=== PATIENT | female | born 1975 | race Caucasian/White ===

== ENCOUNTER → 2020-12-07 | Outpatient (CLI) | payer OTHER ==
[~2020-12-07] MED LIST: LODINE CAP 300300 MG PO; PENVEE K 500 M500 MG PO; ZOFRAN ODT 4 MG4 MG PO
== END ==
LOC: MAMO 11:02
DX: Z12.31 Encounter for screening mammogram for malignant neoplasm of breast (principal)
CPT/HCPCS: 77063; 77067

== ENCOUNTER 2021-01-07 00:37 | Emergency (ER) | payer OTHER ==
[2021-01-07] MEDS ORDERED: LODINE CAP 300300 MG PO (00:56)
[2021-01-07] MEDS ORDERED: ZOFRAN ODT 4 MG4 MG PO (00:56)
[2021-01-07] MEDS ORDERED: PENVEE K 500 M500 MG PO (00:56)
== END 2021-01-07 01:10 | disposition home or self-care (01) ==
LOC: ER1 00:37
DX: K08.89 Other specified disorders of teeth and supporting structures (principal); E78.5 Hyperlipidemia, unspecified; F17.210 Nicotine dependence, cigarettes, uncomplicated; Z90.49 Acquired absence of other specified parts of digestive tract; Z90.89 Acquired absence of other organs
CPT/HCPCS: 99282

== ENCOUNTER → 2021-01-17 | Outpatient (CLI) | payer OTHER | LOC: MAMO 11:30 | DX: R92.8 Other abnormal and inconclusive findings on diagnostic imaging of breast (principal) | CPT/HCPCS: 76642-LT; 76642-RT; 77066; G0279 ==

== ENCOUNTER 2021-04-13 22:48 | Emergency (ER) | payer OTHER ==
[2021-04-14] MEDS ORDERED: ZOFRAN ODT 4 MG4 MG SL (00:13)
[2021-04-14] MEDS ORDERED: IMODIUM CAP 2 MG2 MG PO (00:13)
== END 2021-04-14 00:30 | disposition home or self-care (01) ==
LOC: ER1 22:48
DX: A08.0 Rotaviral enteritis (principal); Z20.818 Contact with and (suspected) exposure to other bacterial communicable diseases
CPT/HCPCS: 83605; 99283